=== PATIENT | female | born 1995 | race Caucasian/White ===

== ENCOUNTER → 2018-12-27 | Outpatient (REF) | payer OTHER | LOC: M LAB LCGH 13:31 | DX: Z34.90 Encounter for supervision of normal pregnancy, unspecified, unspecified trimester (principal) ==

== ENCOUNTER → 2019-06-13 | Outpatient (REF) | LOC: M LAB LCGH 15:05 | PROVIDERS: ATTEND Obstetrics & Gynecology | DX: Z00.00 Encounter for general adult medical examination without abnormal findings (principal) ==

== ENCOUNTER → 2019-07-02 | Outpatient (REF) | LOC: M LAB LCGH 14:11 | PROVIDERS: ATTEND Obstetrics & Gynecology | DX: O99.89 Other specified diseases and conditions complicating pregnancy, childbirth and the puerperium (principal); Z3A.00 Weeks of gestation of pregnancy not specified ==

== ENCOUNTER 2021-08-15 14:58 | Outpatient (CLI) | payer OTHER, SELFPAY ==
[~2021-08-15] VITALS: Ht 165.1 cm; Wt 117.0 kg
[2021-08-15 15:18] VITALS: BP 141/68
[2021-08-15] MEDS ORDERED: NIFEdipine 30 MG XL TAB PO ONE (15:30)
[2021-08-15] MEDS ORDERED: PRENTAB9 PO (15:32)
[2021-08-15] MEDS ORDERED: ACET-907 PO (15:32)
[2021-08-15] MEDS ORDERED: LABE100T4 PO (15:32)
[2021-08-15] MEDS ORDERED: PERCOCET 5MG/325MG TAB PO ONE (15:45)
[2021-08-15 16:01] VITALS: BP 133/79
[2021-08-15 16:19] LABS: TOTAL PROTEIN,RANDOM URINE 11.4 MG/DL (0.0-12.0)
[2021-08-15 16:46] LABS: HEMATOCRIT 33.2 % (36.0-47.0); HEMOGLOBIN 11.1 g/dl (12.0-15.5); MEAN CORPUSCULAR HEMOGLOBIN 29.4 pg (27.0-33.0); MEAN CORPUSCULAR HGB CONC 33.4 g/dl (32.0-36.5); MEAN CORPUSCULAR VOLUME 87.8 fl (80.0-96.0); PLATELET COUNT, AUTOMATED 280 10^3/uL (150-450); RED BLOOD COUNT 3.78 10^6/uL (4.00-5.40); WHITE BLOOD COUNT 15.2 10^3/uL (4.0-10.0)
[2021-08-15 17:11] LABS: ALT/SGPT 23 U/L (12-78); BILIRUBIN,TOTAL < 0.1 MG/DL (0.2-1.0); CREATININE FOR GFR 0.44 MG/DL (0.55-1.30); GLOMERULAR FILTRATION RATE > 60.0 (>60); LDH LACTATE DEHYDROGENASE 140 U/L (84-246); URIC ACID 2.6 MG/DL (2.6-6.0)
[2021-08-15 17:16] VITALS: BP 123/72
[2021-08-15] MEDS ORDERED: FIOR1CAP PO (18:45)
== END 2021-08-15 18:47 | disposition home or self-care (01) ==
LOC: M LDO 14:58
PROVIDERS: ATTEND Advanced Practice Midwife
DX: O10.013 Pre-existing essential hypertension complicating pregnancy, third trimester (principal); Z3A.29 29 weeks gestation of pregnancy; O34.211 Maternal care for low transverse scar from previous cesarean delivery; O99.613 Diseases of the digestive system complicating pregnancy, third trimester; K21.9 Gastro-esophageal reflux disease without esophagitis; O99.213 Obesity complicating pregnancy, third trimester; E66.9 Obesity, unspecified; O99.333 Smoking (tobacco) complicating pregnancy, third trimester; F17.210 Nicotine dependence, cigarettes, uncomplicated; O99.343 Other mental disorders complicating pregnancy, third trimester; F41.1 Generalized anxiety disorder

== ENCOUNTER 2021-09-13 09:58 | Outpatient (CLI) | payer OTHER, SELFPAY ==
[2021-09-13] VITALS (13 sets, daily range): BP systolic 123–167; BP diastolic 59–95
[~2021-09-13] VITALS: Ht 165.1 cm; Wt 115.1 kg
[~2021-09-13 09:58] MED LIST: ACET-907 PO; FIOR1CAP PO; LABE100T4 PO; PRENTAB9 PO
[2021-09-13] MEDS ORDERED: ASPI81TA26 PO (10:29)
[2021-09-13] MEDS ORDERED: MAGO400T2 PO ×2 (10:29→10:31)
[2021-09-13] MEDS ORDERED: PYRI25TA2 PO (10:31)
[2021-09-13] MEDS ORDERED: VITA100T59 PO (10:32)
[2021-09-13] MEDS ORDERED: PANT20TA6 PO (10:33)
[2021-09-13] MEDS ORDERED: LR 1,000 ML IV SCH (11:05)
[2021-09-13] MEDS ORDERED: PROMETHAZINE 25MG/ML 1ML VIAL IV PRN (11:05)
[2021-09-13] MEDS ORDERED: MORPHINE 10 MG/ML 1ML VIAL IV ONE (11:05)
[2021-09-13 12:39] LABS: APPEARANCE, URINE HAZY (CLEAR); BACTERIA, URINE AUTO 2+ (NEGATIVE); BILIRUBIN, URINE AUTO NEGATIVE (NEGATIVE); BLOOD, URINE BLOOD NEGATIVE (NEGATIVE); COLOR, URINE YELLOW (YELLOW); GLUCOSE, URINE (UA) AUTO NEGATIVE (NEGATIVE); KETONE, URINE AUTO TRACE mg/dL (NEGATIVE); LEUKOCYTE ESTERASE, URINE AUTO NEGATIVE (NEGATIVE); MUCUS, URINE SMALL (NEGATIVE); NITRITE, URINE AUTO NEGATIVE (NEGATIVE); PROTEIN, URINE AUTO NEGATIVE (NEGATIVE); RBC, URINE AUTO 1 /HPF (0-3); SPECIFIC GRAVITY URINE AUTO 1.011 (1.002-1.035); SQUAMOUS EPITHELIAL CELL UR AU 5 /HPF (0-6); UROBILINOGEN, URINE AUTO 0.2 mg/dL (0.0-2.0); WBC, URINE AUTO 2 /HPF (0-3)
[2021-09-13 12:42] LABS: HEMATOCRIT 33.5 % (36.0-47.0); HEMOGLOBIN 11.4 g/dl (12.0-15.5); MEAN CORPUSCULAR HEMOGLOBIN 29.8 pg (27.0-33.0); MEAN CORPUSCULAR VOLUME 87.7 fl (80.0-96.0); PLATELET COUNT, AUTOMATED 275 10^3/uL (150-450); RED BLOOD COUNT 3.82 10^6/uL (4.00-5.40); WHITE BLOOD COUNT 21.1 10^3/uL (4.0-10.0)
[2021-09-13 13:02] LABS: TOTAL PROTEIN,RANDOM URINE 16.3 MG/DL (0.0-12.0)
[2021-09-13 13:04] LABS: ALT/SGPT 24 U/L (12-78); BILIRUBIN,TOTAL 0.3 MG/DL (0.2-1.0); CREATININE FOR GFR 0.39 MG/DL (0.55-1.30); GLOMERULAR FILTRATION RATE > 60.0 (>60); LDH LACTATE DEHYDROGENASE 154 U/L (84-246); URIC ACID 2.8 MG/DL (2.6-6.0)
[2021-09-13] MEDS ORDERED: HOME MED LIST COMPLETE! XX SCH (16:00)
== END 2021-09-13 14:54 | disposition home or self-care (01) ==
LOC: M LDO 09:58
PROVIDERS: ATTEND Obstetrics & Gynecology
DX: O26.893 Other specified pregnancy related conditions, third trimester (principal); O60.03 Preterm labor without delivery, third trimester; R10.2 Pelvic and perineal pain; O34.219 Maternal care for unspecified type scar from previous cesarean delivery; Z3A.33 33 weeks gestation of pregnancy
CPT/HCPCS: 81001; 82247; 82565; 82570; 83615; 84156; 84450; 84460; 84550; 85027; 96374; 96376; J2270; J2550

== ENCOUNTER → 2021-09-28 | Outpatient (REF) | payer OTHER ==
[~2021-09-28] MED LIST changes: +ASPI81TA26 PO; +MAGO400T2 PO; +PANT20TA6 PO; +PYRI25TA2 PO; +VITA100T59 PO
== END ==
LOC: M SFHCWAGY 16:57
PROVIDERS: ATTEND Obstetrics & Gynecology
DX: Z36.85 Encounter for antenatal screening for Streptococcus B (principal); O34.211 Maternal care for low transverse scar from previous cesarean delivery; O13.3 Gestational [pregnancy-induced] hypertension without significant proteinuria, third trimester

== ENCOUNTER → 2021-10-03 | Outpatient (CLI) | payer OTHER | LOC: M LABSMTC 09:05 | PROVIDERS: ATTEND Anesthesiology | DX: Z01.818 Encounter for other preprocedural examination (principal); Z11.52 Encounter for screening for COVID-19 ==

== ENCOUNTER 2021-10-07 05:02 | Inpatient (IN) | payer OTHER ==
[2021-10-07] VITALS (8 sets, daily range): BP systolic 123–138; BP diastolic 63–77
[~2021-10-07] VITALS: Ht 165.1 cm; Wt 118.7 kg
[2021-10-07] MEDS ORDERED: HOME MED LIST COMPLETE! XX SCH (05:45)
[2021-10-07] MEDS ORDERED: BICITRA 30ML SOLN UDC PO ONE (05:50)
[2021-10-07] MEDS ORDERED: ceFAZolin SOD 2 GM in IV 1 EA IV ONE (05:50)
[2021-10-07] MEDS ORDERED: LR 1,000 ML IV SCH ×2 (05:50→09:40)
[2021-10-07] MEDS ORDERED: LR 1,000 ML IV ONE (05:50)
[2021-10-07 06:53] LABS: HEMATOCRIT 33.3 % (36.0-47.0); HEMOGLOBIN 11.2 g/dl (12.0-15.5); MEAN CORPUSCULAR HEMOGLOBIN 29.7 pg (27.0-33.0); MEAN CORPUSCULAR HGB CONC 33.6 g/dl (32.0-36.5); MEAN CORPUSCULAR VOLUME 88.3 fl (80.0-96.0); PLATELET COUNT, AUTOMATED 320 10^3/uL (150-450); RED BLOOD COUNT 3.77 10^6/uL (4.00-5.40); WHITE BLOOD COUNT 14.7 10^3/uL (4.0-10.0)
[2021-10-07] MEDS ORDERED: OXYTOCIN INJ 10 UNITS/ML VIAL (J2590) As Ordered ONE (07:17)
[2021-10-07] MEDS ORDERED: MORPHINE PRES-FREE INJ 10 MG/10 ML VIAL As Ordered ONE (07:17)
[2021-10-07] MEDS ORDERED: OXYTOCIN 30 UNITS IN 0.9% NaCl 500ML IV BAG (J2590) As Ordered ONE ×2 (07:20→09:45)
[2021-10-07] MEDS ORDERED: NALOXONE INJ 0.4MG/1ML VIAL (J2310 PER 1MG) IV PRN ×2 (07:44)
[2021-10-07] MEDS ORDERED: diphenhydrAMINE 50MG/ML VIAL (J1200) IV PRN (07:44)
[2021-10-07] MEDS ORDERED: METOCLOPRAMIDE INJ 10MG/2ML VIAL (J2765 PER 1) IV PRN ×2 (07:44→09:40)
[2021-10-07] MEDS ORDERED: ONDANSETRON 4MG/2ML VIAL IV PRN ×3 (07:44→09:40)
[2021-10-07] MEDS ORDERED: ePHEDrine SULFATE 25 MG/5 ML(5MG/ML) SYRINGE As Ordered ONE (08:08)
[2021-10-07] MEDS ORDERED: PHENYLephrine 500MCG 5ML (100MCG/ML) SYRINGE As Ordered ONE (08:08)
[2021-10-07] MEDS ORDERED: GLYCOPYRROLATE INJ 0.2 MG/ML 2 ML VIAL As Ordered ONE (08:08)
[2021-10-07] MEDS ORDERED: dexameTHASONE 4 MG/ML 1ML VIAL (J1100 PER 1MG) As Ordered ONE (08:11)
[2021-10-07] MEDS ORDERED: ONDANSETRON 4MG/2ML VIAL As Ordered ONE (08:11)
[2021-10-07] MEDS ORDERED: MIDAZOLAM INJ 2MG/2ML VIAL (J2250 PER 1MG) As Ordered ONE (08:28)
[2021-10-07] MEDS ORDERED: diphenhydrAMINE 50MG/ML VIAL (J1200) As Ordered ONE (08:31)
[2021-10-07] MEDS ORDERED: propofoL 200 MG/20 ML VIAL As Ordered ONE (08:41)
[2021-10-07] MEDS ORDERED: RHOGAM 300 MCG (1500 IU) INJ (J2790) IM SCH (09:15)
[2021-10-07] MEDS ORDERED: OXYTOCIN DRIP 30 UNITS in IV 1 EA IV SCH (09:15)
[2021-10-07] MEDS ORDERED: MOM 30ML SUSPENSION UDC PO PRN (09:15)
[2021-10-07] MEDS ORDERED: MEASLES,MUMPS,RUBELLA VACCINE INJ (MMR-II) (90707) SC SCH (09:15)
[2021-10-07] MEDS ORDERED: PERCOCET 5MG/325MG TAB PO PRN ×2 (09:15→09:40)
[2021-10-07] MEDS ORDERED: SIMETHICONE 80MG CHEW TAB PO PRN (09:15)
[2021-10-07] MEDS ORDERED: fentaNYL 100 MCG/2 ML INJECTION IV PRN (09:40)
[2021-10-07] MEDS ORDERED: KETOROLAC 30 MG/ML 1ML VIAL IV SCH (10:00)
[2021-10-07 11:07] LABS: HIV 1&2 SCREEN CENTAUR NEGATIVE (NEGATIVE)
[2021-10-07] MEDS: KETOROLAC 30 MG/ML 1ML VIAL IV SCH ×2 (11:54→18:49)
[2021-10-07] MEDS: LR 1,000 ML IV SCH ×2 (11:55→22:37)
[2021-10-07] MEDS ORDERED: ASCORBIC ACID 250 MG TAB PO SCH (21:00)
[2021-10-07] MEDS ORDERED: PANTOPRAZOLE 20 MG TAB PO SCH (21:00)
[2021-10-07] MEDS ORDERED: PILL CUTTER 1 EACH XX PRN (21:20)
[2021-10-07] MEDS: PANTOPRAZOLE 40MG TAB (PROTONIX) PO SCH (22:01)
[2021-10-07] MEDS: DOCUSATE SODIUM 100MG CAPSULE PO SCH (22:01)
[2021-10-07] MEDS: MAGNESIUM OXIDE 400MG TAB (MAG-OX) PO SCH (22:36)
[2021-10-07] MEDS: ASCORBIC ACID 250 MG TAB PO SCH (22:36)
[2021-10-07] MEDS: PYRIDOXINE 50 MG TAB PO SCH (22:36)
[2021-10-08] MEDS: KETOROLAC 30 MG/ML 1ML VIAL IV SCH ×2 (00:11→06:12)
[2021-10-08 02:00] VITALS: BP 118/52
[2021-10-08 05:23] VITALS: BP 138/74
[2021-10-08 07:46] LABS: HEMATOCRIT 28.8 % (36.0-47.0); HEMOGLOBIN 9.6 g/dl (12.0-15.5); MEAN CORPUSCULAR HEMOGLOBIN 29.9 pg (27.0-33.0); MEAN CORPUSCULAR HGB CONC 33.3 g/dl (32.0-36.5); MEAN CORPUSCULAR VOLUME 89.7 fl (80.0-96.0); PLATELET COUNT, AUTOMATED 269 10^3/uL (150-450); RED BLOOD COUNT 3.21 10^6/uL (4.00-5.40); WHITE BLOOD COUNT 12.8 10^3/uL (4.0-10.0)
[2021-10-08] MEDS: PRENATAL VITAMINS CHEWABLE TABLET PO SCH (09:44)
[2021-10-08] MEDS: DOCUSATE SODIUM 100MG CAPSULE PO SCH ×2 (09:44→20:02)
[2021-10-08 10:00] VITALS: BP 141/68
[2021-10-08] MEDS: IBUPROFEN 800 MG TAB PO SCH ×2 (13:05→22:30)
[2021-10-08 14:00] VITALS: BP 135/65
[2021-10-08 17:57] VITALS: BP 140/76
[2021-10-08] MEDS: ASCORBIC ACID 250 MG TAB PO SCH (20:01)
[2021-10-08] MEDS: MAGNESIUM OXIDE 400MG TAB (MAG-OX) PO SCH (20:01)
[2021-10-08] MEDS: PYRIDOXINE 50 MG TAB PO SCH (20:02)
[2021-10-08] MEDS: PANTOPRAZOLE 40MG TAB (PROTONIX) PO SCH (20:02)
[2021-10-08] MEDS: PERCOCET 5MG/325MG TAB PO PRN (20:02)
[2021-10-08 22:00] VITALS: BP 139/78
[2021-10-09] MEDS: PERCOCET 5MG/325MG TAB PO PRN (04:47)
[2021-10-09 05:28] VITALS: BP 129/62
[2021-10-09] MEDS: IBUPROFEN 800 MG TAB PO SCH (05:50)
[2021-10-09] MEDS: PRENATAL VITAMINS CHEWABLE TABLET PO SCH (08:23)
[2021-10-09] MEDS: DOCUSATE SODIUM 100MG CAPSULE PO SCH (08:23)
[2021-10-09] MEDS ORDERED: PERCOCET PO (11:11)
[2021-10-09] MEDS ORDERED: IBUP80TA PO (11:11)
[2022-10-07] MEDS ORDERED: ASCORBIC ACID 250 MG TAB PO SCH (21:00)
== END 2021-10-09 12:50 | disposition home or self-care (01) | DRG 540 ==
LOC: M LDI 05:02 → M OBS 11:03
PROVIDERS: ADMIT Obstetrics & Gynecology; ATTEND Obstetrics & Gynecology
PROC: 10D00Z1 Extraction of Products of Conception, Low, Open Approach (ICD-10-PCS; principal; 2021-10-07 07:30)
DX: O34.211 Maternal care for low transverse scar from previous cesarean delivery (principal); Z91.013 Allergy to seafood; Z37.0 Single live birth; Z3A.39 39 weeks gestation of pregnancy; O13.4 Gestational [pregnancy-induced] hypertension without significant proteinuria, complicating childbirth